=== PATIENT | male | born 1985 | race African-American/Black ===

== ENCOUNTER 2018-05-11 09:38 | Emergency (ER) | payer SELFPAY ==
[~2018-05-11] VITALS: Ht 167.6 cm; Wt 106.0 kg
[~2018-05-11 09:38] MED LIST: CEPH500C2; VIC PO
[2018-05-11 13:57] VITALS: BP 145/91
== END 2018-05-11 14:00 | disposition home or self-care (01) ==
LOC: ER 09:38
DX: S16.1XXA Strain of muscle, fascia and tendon at neck level, initial encounter (principal); M54.9 Dorsalgia, unspecified; V43.52XA Car driver injured in collision with other type car in traffic accident, initial encounter; Y93.89 Activity, other specified; Y92.410 Unspecified street and highway as the place of occurrence of the external cause; Z90.49 Acquired absence of other specified parts of digestive tract
CPT/HCPCS: 99283

== ENCOUNTER 2022-08-18 18:56 | Emergency (ER) | payer MEDICAID, OTHER ==
[~2022-08-18] VITALS: Ht 165.1 cm; Wt 109.6 kg
[2022-08-18] MEDS ORDERED: CYCL10TA21 MT (21:57)
[2022-08-18] MEDS ORDERED: IBUP-2029 MT (21:58)
[2022-08-18] MEDS ORDERED: LORAZEPAM 1MG TABLET PO ONE (22:00)
[2022-08-18] MEDS ORDERED: KETOROLAC 60MG/2ML VIAL IM ONE (22:00)
[2022-08-18 22:20] VITALS: BP 131/83
== END 2022-08-18 22:20 | disposition home or self-care (01) ==
LOC: ER 18:56
DX: M54.9 Dorsalgia, unspecified (principal)
CPT/HCPCS: 96372; 99283; J1885; Z7610